=== PATIENT | female | born 1935 | race Caucasian/White ===

== ENCOUNTER 2018-06-03 05:30 | Inpatient (IN) ==
[2018-06-03] MEDS ORDERED: Sodium Chlor 0.9% Inj 80 ML, Bupivacaine Liposo PF 1.3% Inj 20 ML P-ARTICULR ONE ×2 (05:47)
[2018-06-03] MEDS ORDERED: Chlorhexidine Gluconate 2% 1 Pack (2 Cloths) TOPICAL ONE (05:49)
[2018-06-03] MEDS ORDERED: Metoprolol Tartrate 25 MG Tablet PO ONE (05:49)
[2018-06-03] MEDS ORDERED: Sodium Chlor 0.9% Inj 500 ML IV.SIG SCH (06:00)
[2018-06-03] MEDS ORDERED: TRANEXAMIC ACID IV.SIG SCH ×2 (06:00→09:00)
[2018-06-03] MEDS ORDERED: ceFAZolin 2 GM Premix Inj 2 GM/50 ML PIGGYBACK IV.SIG SCH (06:00)
[2018-06-03] MEDS ORDERED: Chlorhexidine 4% Topical 120 APPLIC/120 ML Bottle TOPICAL SCH (06:00)
[2018-06-03] MEDS ORDERED: SODIUM CHLOR 0.9% IV.SIG SCH ×2 (06:00→09:00)
[2018-06-03] MEDS ORDERED: Bupivacaine Liposomal PF 1.3% Inj 20 ML Vial ONE (06:12)
[2018-06-03] MEDS ORDERED: Lidocaine PF 1% Inj 5 ML Vial ONE (06:13)
[2018-06-03] MEDS ORDERED: Propofol Inj 500 MG/50 ML Vial ONE (06:17)
[2018-06-03] MEDS ORDERED: Famotidine PF Inj 20 MG/2 ML Vial ONE (06:17)
[2018-06-03 06:35] LABS: Baso # (Auto) 0.3 th/mm3 (0.0-0.2); Baso % (Auto) 2.4 % (0.0-2.0); Eos # (Auto) 0.6 th/mm3 (0.0-0.4); Eos % (Auto) 4.9 % (0.0-4.0); Hematocrit 37.1 % (35.0-46.0); Hemoglobin 12.3 gm/dL (11.6-15.3); Lymph # (Auto) 0.7 th/mm3 (1.0-4.8); Mean Corpuscular HGB Conc 33.1 % (32.0-36.0); Mean Corpuscular Hemoglobin 29.8 pg (27.0-34.0); Mean Corpuscular Volume 89.9 fL (80.0-100.0); Mean Platelet Volume 8.6 fL (7.0-11.0); Mono # (Auto) 1.2 th/mm3 (0.0-0.9); Mono % (Auto) 10.1 % (0.0-8.0); Neut # (Auto) 8.9 th/mm3 (1.8-7.7); Neut % (Auto) 76.6 % (16.0-70.0); Platelet Count 535 th/mm3 (150-450); Red Blood Count 4.13 mil/mm3 (4.00-5.30); White Blood Count 11.7 th/mm3 (4.0-11.0)
[2018-06-03] MEDS ORDERED: fentaNYL Citrate Inj 100 MCG/2 ML Ampul ONE (06:35)
[2018-06-03] MEDS ORDERED: fentaNYL Citrate Inj 250 MCG/5 ML Ampul ONE (06:35)
--- NOTE | 2018-06-03 06:54 | P.DCO ---
- Physical Therapy Physical Therapy: Gait training Knee: Total knee, Protocol: Left, Gait training, Full weight bearing Left Lower Extremity Weight Bearing: Weight bearing as tolerated Left Lower Extremity Range of Motion: Active ROM (Active, active assisted, passive range of motion. Range of motion goal is 0 degrees extension to 135 degrees of flexion.) - Nursing Nursing: Dressing changes (Do not remove Dermabond Prineo (the tape that is directly on the wound).Leave the Optifoam dressing in place for 7 days. After this, daily dressing changes will be done taking care to avoid injuring or removing the Dermabond Prineo.) Dressing changes: Other (Do not remove Dermabond Prineo (the tape that is directly on the wound).Leave the Optifoam dressing in place for 7 days. After this, daily dressing changes will be done taking care to avoid injuring or removing the Dermabond Prineo.) - Case Management Consult Case Management Consult-Home Health: Yes - Certification Need for Home Health services: I have seen patient Antonia Carrasco on 06/03/18. My clinical findings support the need for the requested home health care services because: Need for Home Health Services: Limited ability to care for self, High risk of falls Homebound Certification: I certify that my clinical findings support that this patient is homebound because: Homebound Certification: Post-op weakness, Unsteady gait/balance, Unsafe to leave home unassisted
[2018-06-03 07:18] LABS: Dimorphic RBC Present; Ovalocytes 1+
[2018-06-03] MEDS ORDERED: VITAMIN D3 VITAMIN K2 PO SCH (09:00)
[2018-06-03] MEDS ORDERED: Non-Formulary Drug (Omega 3-Dha-Epa-Fish Oil [Fish Oil] 1 CAP) PO SCH (09:00)
[2018-06-03] MEDS ORDERED: LENALIDOMIDE 5 MG PO SCH (09:00)
--- NOTE | 2018-06-03 09:20 | P.OP ---
- Preoperative Diagnosis (1) Primary osteoarthritis of left knee - Postoperative Diagnosis (1) Primary osteoarthritis of left knee Date of procedure: 06/03/18 Procedure: Left total knee arthroplasty using Joanna Triathlon prosthesis (cemented) Anesthesia: GETA, local (Exparel) Surgeon: Jose Manuel Lea MD Senior Data Quality Analyst: PRATEEK Segura Estimated blood loss (mL): 150 Tourniquet time (min): 0 Pathology: other (Bone lesion, left medial femoral condyle) Operation and Findings: Indications and Findings: This 82-year-old woman has had 5-1/2-year history of left knee pain secondary to osteoarthritis. Her symptoms include generalized swelling and pain, difficulty ascending and descending stairs, pain when sitting for any length of time and giving way occasionally. She has a very limited ambulation tolerance. She is only able to walk around the grocery store. Treatment has included analgesics, anti-inflammatory agents, activity modification, exercise, intra-articular corticosteroids and ambulatory aids. These are no longer giving her enough pain relief to remain functional. Radiographic findings including x-rays and MRI showed severe arthritis in the left knee with loss of articular cartilage to [id number] in the lateral compartment, except multiple osteophytes in all compartments and general demineralization. There was subchondral sclerosis in the lateral compartment. Operative findings: There is severe arthritis in the left knee particularly in the lateral compartment with loss of articular cartilage to exposed subchondral bone. There was articular cartilage disruption in the medial and lateral compartments. In the medial femoral condyle along the medial ridge there was a yellowish lesion measuring approximately 5 mm across, 5 mm deep and 20 mm in length. This was removed and sent to pathology. The bone quality was not sufficient for uncemented prosthesis. The prosthesis used was a Joanna Triathlon prosthesis. The femur was a size 4, cruciate retaining. The tibial baseplate was a size 4, Vitallium with a 9 mm, cruciate retaining, X3 polyethylene spacer. The patella was a size 32 mm asymmetric X3 polyethylene. The cement was Simplex.. After a regional anesthetic by adductor canal block was administered, the patient was brought to the clean-air operating suite. A spinal anesthetic was administered. The position was supine with a small bolster under the hip on the operative side. A pneumatic tourniquet was applied to the upper thigh. The lower extremity was prepped with alcohol, Hibiclens and ChloraPrep and draped in the usual manner with the knee draped free. An appropriate timeout procedure was carried out. An incision was made from about 3 fingerbreadths above the superior medial pole of patella down the tibial tubercle on the medial side. The incision was deepened through the subcutaneous tissue to the retinacular structures which were exposed medially and laterally. A medial retinacular incision was made from the superior middle pole of patella down the tibial tubercle and up into the quadriceps tendon splitting it longitudinally and the medial one third. The patella was reflected. The infrapatellar fat pad was debulked. The anterior cruciate ligament was excised. Medial and lateral meniscectomies were initiated. Fenestrations were made in the distal femur and proximal tibia for intramedullary referencing guides. The posterior surface of the patella was excised with the oscillating saw. A patellar protector was applied. The distal femoral cutting guide and jig were assembled for a 5, 8 mm cut. When this was in position, the cutting block was stabilized with pins. The jig was removed. The distal femoral cut was completed with the oscillating saw. The sizing guide was positioned in place along Whitesides line and the epicondylar axis and stabilized with pins. The femoral size was determined as noted above. The 4-in-1 cutting block was positioned in place. Anterior and posterior cuts were made followed by posterior and anterior chamfer cuts taking care to prevent injury to ligamentous structures. Osteophytes were trimmed from the distal femur. The lesion in the medial femoral condyle and trochlea area was debrided with a curette and sent to pathology. A bone plug was placed into the fenestration of the distal femur. The proximal tibia was exposed. The medial and lateral meniscectomies were completed. The proximal tibial cutting guide was positioned in place and stabilized with a pin for rotation. The depth of cut was verified with a stylus off the lateral side. The cutting block was stabilized with pins. The jig was removed. The depth of cut was verified and adjusted appropriately with the use of the spacer block. The proximal tibial cut was made with the oscillating saw taking care to prevent injury to neurovascular and ligamentous structures. Proximal tibial bone was removed. Local anesthetic was administered with Exparel in the posterior capsule. The tibial baseplate trial was positioned in place. After verifying the appropriate size, the base plate trial was positioned in place along with its spacer. The femoral component was impacted into place. The alignment was checked. The tibial baseplate was pinned in place on the tibia. Attention was directed to the patella. The patella drill guide was positioned in place for the appropriate sized patella. Patellar drilling was carried out. The trial patella was positioned in place. The knee was taken through a range of motion which was easily 0 extension to 150. The patella trial was removed. The femoral drill holes were made. The femoral trials were removed. The tibial spacer was removed. A bone plug was placed into the proximal tibia. The tibial punch was impacted through the proximal tibial punch guide. The cut ends of bone were cleaned with pulse lavage. Simplex cement was pressurized into the proximal aspect of the tibia after drying. The tibial baseplate was impacted into place and seated appropriately. Excess cement was trimmed. The spacer was inserted. The distal end of the femur was cleaned with pulse lavage. After drying, cement was applied to the distal end of the femur and the femoral component. The femoral component was then impacted into place and seated appropriately. Excess cement was trimmed. The posterior surface of the patella was cleaned with pulse lavage. Cement was injected into the posterior surface of the patella and the patella component. The patella component was seated with the patellar clamp and tightened appropriately. Excess cement cement was trimmed. The remainder of the Exparel was injected throughout the knee as a local anesthetic. Drains were brought out the superior lateral aspect of the suprapatellar pouch. The knee was taken through a range of motion which was comparable to the previous range of motion with excellent stability in flexion and extension and appropriate patellofemoral tracking. Wound closure commenced using #1 Vicryl interrupted [id number] sutures and a continuous barbed suture for the capsular and fascial structures, 2-0 Vicryl interrupted simple sutures with buried knots for the subcutaneous tissues and 4-0 Monocryl, continuous subcuticular closure for the skin. The wound was dressed with Dermabond Prineo followed by Optifoam silver impregnated dressing. Sterile soft roll with a cooling pad and Baljeet bandage from the base of the toes to mid thigh were then applied. The patient was transferred from the operating room to the recovery room in satisfactory condition having tolerated procedure well. Counts were correct. Specimens: None. Estimated blood loss: 150 mL
[2018-06-03] MEDS ORDERED: Tranexamic Acid Inj 0 MG in Sodium Chlor 0.9% Inj 100 ML IV.SIG ONE (09:25)
[2018-06-03] MEDS ORDERED: Aluminum/Magnesium/Simethacone Susp 30 ML UDC PO PRN (09:25)
[2018-06-03] MEDS ORDERED: Morphine Inj 4 MG/ML Vial IV.PUSH PRN (09:25)
[2018-06-03] MEDS ORDERED: Post-op Orders (for Pharmacy) OTHER STA (09:25)
[2018-06-03] MEDS ORDERED: Bisacodyl 10 MG Supp RECTAL PRN (09:25)
[2018-06-03] MEDS ORDERED: Acetaminophen 325 MG Tablet PO PRN (09:25)
[2018-06-03] MEDS ORDERED: *morphine SULFATE 10 MG/ML PERIprocedure ONLY ONE (10:18)
[2018-06-03] MEDS: Aspirin 325 MG Tablet PO SCH (10:23)
[2018-06-03] MEDS: Celecoxib 200 MG Capsule PO SCH (10:35)
--- NOTE | 2018-06-03 10:47 | XR ---
EXAM DATE: 06/03/2018 10:45 AM EST AGE/SEX: 82 years / Female INDICATIONS: Post left knee surgery. CLINICAL DATA: This is the patient's initial encounter. Patient reports that signs and symptoms have been present for 1 day and indicates a pain score of 7/10. MEDICAL/SURGICAL HISTORY: None. None. COMPARISON: No prior exams available for comparison. FINDINGS: Left knee arthroplasty in place. Arthroplasty components are in anatomic alignment. No significant ac redding fracture. Immediate postsurgical soft tissue features. CONCLUSION: 1. Left knee arthroplasty in anatomic alignment without acute fracture. Electronically signed by: Quentin Mendez MD Board Certified Radiologist 06/03/2018 10:46 AM [facility] T
[2018-06-03] MEDS: Ketorolac Inj 30 MG/ML (IVP) Vial IV.PUSH SCH ×3 (11:38→20:33)
--- NOTE | 2018-06-03 15:22 | P.CONIM ---
History of Present Illness Service: Hospitalist Consult date: 06/03/18 Requesting Physician: Jose Manuel Lea Reason for Consult: Assist with ongoing medical management Primary Care Provider: Sekou Mon MD Chief Complaint: Left knee pain History of Present Illness: This is a 82-year-old female with a past medical history significant for breast cancer status post bilateral mastectomies and reconstruction, Sjoren's, myelofibrosis followed by Dr. Thorpe, dyslipidemia, hypertension and osteoarthritis of the left knee who tried and failed numerous attempts at conservative therapy and underwent elective left total knee replacement performed by Dr. Lea earlier today. Hospitalist services have been consulted to assist with ongoing medical management. Patient seen and examined. Patient reports her postop pain is well controlled at this time. She does not voice any acute medical complaints or concerns. She denies any fever or chills. She denies any chest pain or shortness of breath. She denies any nausea, vomiting or abdominal pain. She does state that she has intermittent chronic diarrhea secondary to Revlimid use but has not had any diarrhea in the past few days. She denies any urinary difficulties, hematuria or dysuria. Patient had estimated intraoperative blood loss of 150 mL's. BP is currently 152/61. She is afebrile. O2 sats are 96% on room air. Review of Systems Review of Systems: all other systems reviewed are negative [facility] Medical History Medical History Maintenance chemotherapy (Acute) TIA (transient ischemic attack) (Acute) Arthritis (Acute) GERD (gastroesophageal reflux disease) (Acute) History of anesthesia reaction (Acute) History of breast cancer (Acute) History of hysterectomy (Acute) Hypertension (Acute) Myelofibrosis (Acute) Wears glasses (Acute) Surgical History Surgical History H/O bilateral breast implants (Acute) H/O bilateral mastectomy (Acute) History of ankle surgery (Acute) Hx of tonsillectomy (Acute) Status post cataract extraction of both eyes with insertion of intraocular lens (Acute) Family History Family History Aunt Breast cancer Social History Social History Substance History: No History of Abuse Second Hand Smoke Exposure: No Smoking Status: Never smoker How Often Do You Have a Drink Containing Alcohol: 2 to 4 times a month Recent Travel in [place] within the Last 8 Weeks: No Recent Out of Country Travel within the Last 8 Weeks: No Immunization History Tetanus Immunization: <5 Years Hx Influenza Vaccine This Season: Yes Medications and Allergies Allergies Allergy/AdvReac Type Severity Reaction Status Date / Time codeine AdvReac Severe NAUSEA Verified 06/03/18 06:02 lactose AdvReac Severe INTOLERANT Verified 06/03/18 06:02 Home Medications Medication Instructions Recorded Confirmed Type aspirin 325 mg PO DAILY 05/26/18 06/03/18 History celecoxib [Celebrex] 200 mg PO DAILY 05/26/18 06/03/18 History estradiol [Estrace] 1 g VAGINAL 3XW 05/26/18 06/03/18 History hydroxychloroquine 200 mg PO MOWEFR 05/26/18 06/03/18 History lenalidomide [Revlimid] 5 mg PO DAILY 05/26/18 06/03/18 History losartan 100 mg PO HS 05/26/18 06/03/18 History mecobalamin (vitamin B12) 1,000 mcg SUBLINGUAL DAILY 05/26/18 06/03/18 History nebivolol [Bystolic] 5 mg PO HS 05/26/18 06/03/18 History omega 4-fqg-ijq-fish oil [Fish Oil] 1 cap PO DAILY 05/26/18 06/03/18 History vitamin D3-vitamin K2 1,000 unit PO BID 05/26/18 06/03/18 History Active Medications: Active Medications Acetaminophen (Tylenol) 650 mg PO Q6H PRN PRN Reason: Pain Less Than 3 On Scale Hydrocodone Bitart/Acetaminophen (Mayflower 7.5/325) 1 tab PO Q4H PRN PRN Reason: PAIN SCALE 4 TO 6 MODERATE Hydrocodone Bitart/Acetaminophen (Mayflower 7.5/325) 2 tab PO Q6H PRN PRN Reason: PAIN SCALE 7 TO 10 SEVERE Al Hydrox/Mg Hydrox/Simethicone (Mag-Al Plus Susp Liq) 30 ml PO Q6H PRN PRN Reason: INDIGESTION Al Hydroxide/Mg Hydroxide (Milk Of Magnesia Liq) 30 ml PO BID PRN PRN Reason: Mild Constipation Aspirin (Aspirin) 325 mg PO DAILY KATHARINA Last Admin: 06/03/18 10:23 Dose: 325 mg Bisacodyl (Dulcolax Supp) 10 mg RECTAL DAILY PRN PRN Reason: SEVERE CONSITIPATION Celecoxib (Celebrex) 200 mg PO DAILY COUNTS INCLUDE 234 BEDS AT THE [facility] Last Admin: 06/03/18 10:35 Dose: 200 mg Chlorhexidine Gluconate (Hibiclens 4% Topical) 1 applicatio TOPICAL ONCE COUNTS INCLUDE 234 BEDS AT THE [facility] Stop: 06/07/18 05:59 Last Admin: 06/03/18 06:28 Dose: 1 applicatio Cyanocobalamin (Vitamin B12) 1,000 mcg PO DAILY COUNTS INCLUDE 234 BEDS AT THE [facility] Last Admin: 06/03/18 10:36 Dose: 1,000 mcg Diphenhydramine HCl (Benadryl) 25 mg PO Q6H PRN PRN Reason: ITCHING Estradiol (Estrace 0.01% Vag Cream) 1 appful VAGINAL SuWeFr COUNTS INCLUDE 234 BEDS AT THE [facility] Hydroxychloroquine Sulfate (Plaquenil) 200 mg PO MOWEFR COUNTS INCLUDE 234 BEDS AT THE [facility] Cefazolin Sodium/Dextrose (Ancef 2 Gm Premix Inj) 2 gm in 50 mls @ 100 mls/hr IV.SIG ADOBE CQ DEVELOPER COUNTS INCLUDE 234 BEDS AT THE [facility] Stop: 06/07/18 05:59 Last Infusion: 06/03/18 07:25 Dose: Infused Lactated Ringer's (Lr 1000 Ml Inj) 1,000 mls @ 30 mls/hr IV.SIG .Q24H COUNTS INCLUDE 234 BEDS AT THE [facility] Stop: 06/04/18 05:59 Last Infusion: 06/03/18 07:41 Dose: Infused Sodium Chloride (Ns Inj) 500 mls @ 30 mls/hr IV.SIG .Q10H COUNTS INCLUDE 234 BEDS AT THE [facility] Last Admin: 06/03/18 06:28 Dose: Not Given Lactated Ringer's (Lr 1000 Ml Inj) 1,000 mls @ 80 mls/hr IV.CONT .[id number] COUNTS INCLUDE 234 BEDS AT THE [facility] Last Admin: 06/03/18 10:00 Dose: 80 mls/hr Cefazolin Sodium 1 gm/ Sodium (Chloride) 100 mls @ 200 mls/hr IV.SIG Q6H COUNTS INCLUDE 234 BEDS AT THE [facility] Stop: 06/04/18 07:29 Ketorolac Tromethamine (Toradol Inj) 15 mg IV.PUSH Q6H COUNTS INCLUDE 234 BEDS AT THE [facility] Stop: 06/05/18 03:31 Last Admin: 06/03/18 11:38 Dose: Not Given Lactulose (Lactulose Liq) 30 ml PO DAILY PRN PRN Reason: SEVERE CONSITIPATION Losartan Potassium (Cozaar) 100 mg PO HS COUNTS INCLUDE 234 BEDS AT THE [facility] Miscellaneous Information (Misc Nursing Information) 1 each OTHER UNSCH PRN PRN Reason: SEE LABEL COMMENTS Stop: 06/04/18 09:36 Morphine Sulfate (Morphine Inj) 2 mg IV.PUSH Q3H PRN PRN Reason: BREAKTHROUGH PAIN Nebivolol (Bystolic) 5 mg PO HS COUNTS INCLUDE 234 BEDS AT THE [facility] Ondansetron HCl (Zofran Odt) 4 mg PO Q6H PRN PRN Reason: NAUSEA OR VOMITING Lenalidomide ( Revlimid) 5 Mg Po Daily 0 each PO DAILY COUNTS INCLUDE 234 BEDS AT THE [facility] Senna/Docusate Sodium (Thea-Colace) 1 tab PO BID COUNTS INCLUDE 234 BEDS AT THE [facility] Sennosides (Senokot) 17.2 mg PO BID PRN PRN Reason: Moderate Constipation Sodium Chloride (Ns Flush) 2 ml IV.FLUSH BID KATHARINA Sodium Chloride (Ns Flush) 2 ml IV.FLUSH PRN PRN PRN Reason: FLUSH AFTER USING IV ACCESS Physical Exam Vital signs: Vital Signs 06/03/18 06:11 06/03/18 06:40 06/03/18 09:37 Temperature 97.8 F 97.5 F L Pulse Rate 64 59 L Respiratory Rate 18 12 Blood Pressure 215/97 H 173/81 H Pulse Oximetry 100 100 100 06/03/18 09:45 06/03/18 10:00 06/03/18 10:15 Temperature Pulse Rate 54 L 50 L 59 L Respiratory Rate 16 16 16 Blood Pressure 150/70 H 174/77 H 175/77 H Pulse Oximetry 100 100 98 06/03/18 10:30 06/03/18 11:00 06/03/18 12:00 Temperature 98.2 F 98.2 F 98.0 F Pulse Rate 50 L 51 L 52 L Respiratory Rate 12 16 19 Blood Pressure 175/77 H 173/75 H 152/61 H Pulse Oximetry 99 100 96 Intake & Output 06/02/18 06/03/18 06/03/18 18:59 06:59 18:59 Intake Total 215. / 215. Output Total 150 / 150 Balance Weight 52.2 kg 52.2 kg Intake: IV 1155.22 / 1155.22 LR 1000 mL Inj 1,000 ML @ 30 1000 / 1000 mls/hr IV.SIG .Q24H KATHARINA Rx#: [id number] Cyklokapron Inj 522 MG In NS 105.22 / 105.22 Inj 100 ML @ 200 mls/hr IV.SIG ONCE KATHARINA Rx#:[id number] Ancef 2 GM Premix Inj 2 gm In 50 / 50 50 ml @ 100 mls/hr IV.SIG ADOBE CQ DEVELOPER KATHARINA Rx#:[id number] Anesthesia Amount 1000 / 1000 Output: Estimated Blood Loss 150 / 150 Other: Weight On Admission 52.2 kg Narrative: GENERAL: WDWN female patient, appears much younger than stated age. In no acute distress. Awake and alert. at the bedside. SKIN: Warm and dry. HEAD: Atraumatic. Normocephalic. EYES: Pupils equal and round. No scleral icterus. No injection or drainage. ENT: No nasal bleeding or discharge. Mucous membranes pink and moist. NECK: Trachea midline. CARDIOVASCULAR: Regular rate and rhythm. No murmur auscultated. RESPIRATORY: No accessory muscle use. Clear to auscultation. Breath sounds equal bilaterally. GASTROINTESTINAL: Abdomen soft, non-tender, nondistended. +Hypoactive BS. MUSCULOSKELETAL: s/p left total knee replacement, postop dressings in place, C/D /I, +cryotherapy. NV intact distal LLE with some mild subjective decreased sensation left lower extremity status post block. NEUROLOGICAL: Awake and alert. No obvious cranial nerve deficits. Able to move all extremities spontaneously. Normal speech. PSYCHIATRIC: Appropriate mood and affect; insight and judgment normal. Results Labs CBC & Chem 7: 06/03/18 06:25 Imaging Impressions Knee X-Ray 06/03/18 06:51 CONCLUSION: 1. Left knee arthroplasty in anatomic alignment without acute fracture. ABG Impressions Knee X-Ray 06/03/18 06:51 CONCLUSION: 1. Left knee arthroplasty in anatomic alignment without acute fracture. Assessment and Plan (1) Status post total left knee replacement using cement: Code(s): Z96.652 - Presence of left artificial knee joint Status: Acute Plan 82-year-old female with osteoarthritis left knee admitted status post elective left total knee replacement performed by Dr. Lea. Hospitalist service is consulted to assist with ongoing medical management. Osteoarthritis left knee failed attempts at conservative therapy Status post elective left total knee replacement performed by Dr. 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 Thorpe as outpatient -continue on home med Revlimid and Plaquenil -patient at increased risk of bleeding and thrombosis. Will likely need to escalate postoperative anticoagulation if no significant postop blood loss. Per Dr. Thorpe, consider Heparin x 1 week following her surgery Inflammatory arthritis Sjogren's -continue on home dose Plaquenil DVT prophylaxis -per Ortho Thank you very kindly for this consultation. We will continue to follow patient along with you. Discussed Condition With: patient, nursing staff, Dr. Ayala Discharge Planning: per primary team
[2018-06-03] MEDS ORDERED: hydrALAZINE 10 MG Tablet PO PRN (17:07)
[2018-06-03] MEDS: ceFAZolin Inj 1 GM in Sodium Chlor 0.9% Inj 100 ML IV.SIG SCH (18:00)
[2018-06-03] MEDS: Senna/Docusate Sodium 8.6/50 MG Tablet PO SCH (20:33)
[2018-06-04] MEDS: ceFAZolin Inj 1 GM in Sodium Chlor 0.9% Inj 100 ML IV.SIG SCH ×2 (01:16→06:30)
[2018-06-04] MEDS: Ketorolac Inj 30 MG/ML (IVP) Vial IV.PUSH SCH ×3 (03:31→14:55)
[2018-06-04 06:20] LABS: Hematocrit 32.7 % (35.0-46.0); Hemoglobin 10.7 gm/dL (11.6-15.3)
[2018-06-04 06:45] LABS: Calcium 8.5 mg/dL (8.5-10.1); Carbon Dioxide 28.3 meq/L (21.0-32.0); Potassium 3.7 meq/L (3.5-5.1)
[2018-06-04] MEDS ORDERED: Neostigmine Inj 5 MG/5 ML Syringe IV.PUSH ONE (06:53)
[2018-06-04] MEDS ORDERED: Glycopyrrolate Inj 1 MG/5 ML Syringe IV.PUSH ONE (06:53)
[2018-06-04] MEDS ORDERED: Lidocaine PF 1% Inj 5 ML Syringe OTHER ONE (06:53)
--- NOTE | 2018-06-04 07:26 | P.PNOP ---
Subjective Interval history: Postop day #1 She is doing well. She has virtually no complaints related to the knee. Physical therapy reports that the ambulation distance was 100 feet. The range of motion was 0 degrees of extension to 87 degrees of flexion. Physical Exam Vital signs: Vital Signs 06/03/18 09:37 06/03/18 09:45 06/03/18 10:00 Temperature 97.5 F L Pulse Rate 59 L 54 L 50 L Respiratory Rate 12 16 16 Blood Pressure 173/81 H 150/70 H 174/77 H Pulse Oximetry 100 100 100 06/03/18 10:15 06/03/18 10:30 06/03/18 11:00 Temperature 98.2 F 98.2 F Pulse Rate 59 L 50 L 51 L Respiratory Rate 16 12 16 Blood Pressure 175/77 H 175/77 H 173/75 H Pulse Oximetry 98 99 100 06/03/18 12:00 06/03/18 16:00 06/03/18 19:35 Temperature 98.0 F 97.6 F 96.8 F L Pulse Rate 52 L 54 L 57 L Respiratory Rate 19 14 18 Blood Pressure 152/61 H 164/74 H 169/76 H Pulse Oximetry 96 98 97 06/03/18 23:40 06/04/18 04:30 Temperature 97.3 F L 97.1 F L Pulse Rate 62 62 Respiratory Rate 18 17 Blood Pressure 149/70 H 168/70 H Pulse Oximetry 96 93 L Intake & Output 06/03/18 06/04/18 06/04/18 18:59 06:59 18:59 Intake Total 2255.22 / 2255.22 760 / 760 Output Total 150 / 150 80 / 80 Balance 2105.22 / 2105.22 680 / 680 Weight 52.2 kg 52.2 kg Intake: IV 1255.22 / 1255.22 100 / 100 LR 1000 mL Inj 1,000 ML @ 30 1000 / 1000 mls/hr IV.SIG .Q24H KATHARINA Rx#: [id number] Cyklokapron Inj 522 MG In NS 105.22 / 105.22 Inj 100 ML @ 200 mls/hr IV.SIG ONCE KATHARINA Rx#:[id number] Ancef 2 GM Premix Inj 2 gm In 50 / 50 50 ml @ 100 mls/hr IV.SIG COMMUNICATIONS ELECTRICIAN SUPERVISOR KATHARINA Rx#:[id number] Ancef Inj 1 GM In NS Inj 100 ML 100 / 100 100 / 100 @ 200 mls/hr IV.SIG Q6H KATHARINA Rx #:[id number] Oral 660 / 660 Anesthesia Amount 1000 / 1000 Output: Estimated Blood Loss 150 / 150 Wound Drainage 80 / 80 # 1 Left Knee 80 / 80 Other: # Voids 1 1 Date of Last Bowel Movement 06/02/18 06/02/18 # Bowel Movements 0 Narrative: She is resting comfortably, supine in bed. The dressing is dry and intact. The neurovascular status is intact. She is bending the knee and moving it without much difficulty. Results - Labs CBC & Chem 7: 06/04/18 04:47 06/04/18 04:47 Laboratory Results - last 24 hr 06/04/18 06/04/18 04:47 04:47 Hgb 10.7 L Hct 32.7 L Sodium 139 Potassium 3.7 Chloride 103 Carbon Dioxide 28.3 Anion Gap 8 BUN 13 Creatinine 0.94 Estimated GFR 57 L Random Glucose 86 Calcium 8.5 - Imaging Impressions Knee X-Ray 06/03/18 06:51 CONCLUSION: 1. Left knee arthroplasty in anatomic alignment without acute fracture. - Procedures Right total knee arthroplasty using [place] Triathlon prosthesis (cemented) on . Assessment and Plan - Ortho Post Op Day # 1 - Problem List (1) Status post total left knee replacement using cement Code(s): Z96.652 - Presence of left artificial knee joint Status: Acute Onset Date: 06/03/18 Plan: Continue postop care and PT. I have discussed the findings at the time of surgery with her. I have explained the procedure to her. - Assessment and Plan Condition: Good. Orthopedically stable. DVT prophylaxis: TEDs, aspirin, sequentials. Discharge plans: Home with home health care. An appointment was scheduled through the office. Prescriptions: Pinon 7.5/325; Patient is having significant pain caused by a total knee arthroplasty which will last more than 3 days. Trial of Tylenol has not helped. I believe that it is medically necessary to treat patients pain because it is affecting patients ability to participate in postoperative rehabilitation and perform activities of daily living in a comfortable and efficient manner. I have checked the [facility] database prior to completing the prescription.
--- NOTE | 2018-06-04 07:55 | P.DS ---
Date of admission: 06/03/18 05:30 Primary care physician: Sekou Mon MD Attending physician on discharge: Jose Manuel Lea Anticipated date of discharge: 06/04/18 Brief History from admission: This 82-year-old woman has had long-standing arthritis in her left knee, nonresponsive to conservative measures including anti-inflammatory agents, analgesics, injections, ambulatory aids, physical therapy and the like. This interferes with her activities of daily living. She has a limited ambulation tolerance. Physical findings showed genu valgum with crepitation and laxity in the lateral compartment. There were palpable osteophytes. Radiographic findings showed severe arthritis in the knee with loss of articular cartilage to [id number] in the lateral compartment, degenerative changes in the medial, lateral and patellofemoral compartment including osteophytes and subchondral sclerosis laterally. DS: Diagnosis - Discharge Diagnosis (1) Status post total left knee replacement using cement Status: Acute Diagnosis: Principal (2) Primary osteoarthritis of left knee Status: Chronic DS: Medications - Discharge Medications Prescriptions: hydrocodone-acetaminophen 1 tab PO Q4H PRN 7 Days #42 tab PRN Reason: Pain DS: Summary Hospital Course: The patient was admitted as noted above. The above noted operative procedure was carried out that day. Preoperatively prophylactic antibiotics were administered Ancef according to protocol. These were continued postoperatively. The patient also received tranexamic acid to help with hemostasis according to protocol. In the postanesthesia care unit mechanical methods of DVT prophylaxis in the form of ASHLEY stockings and sequentials were initiated. Physical therapy was initiated on the day of surgery. On postoperative day #1 physical therapy continued. DVT prophylaxis with resumption of aspirin 325 mg was initiated at this time. The patient continued physical therapy throughout the hospitalization. The distance walked and range of motion improved throughout the hospitalization. The patient was discharged on postoperative day 1 with the disposition being to home with home health care. An appointment for follow-up was made prior to admission. - Time Spent with Patient Total time spent providing and/or coordinating discharge services: Less than 30 minutes - Quality: VTE Deep Vein Thrombosis/Pulmonary Embolism Present on Admission: No Exam Vital signs: Vital Signs 06/03/18 09:37 06/03/18 09:45 06/03/18 10:00 Temperature 97.5 F L Pulse Rate 59 L 54 L 50 L Respiratory Rate 12 16 16 Blood Pressure 173/81 H 150/70 H 174/77 H Pulse Oximetry 100 100 100 06/03/18 10:15 06/03/18 10:30 06/03/18 11:00 Temperature 98.2 F 98.2 F Pulse Rate 59 L 50 L 51 L Respiratory Rate 16 12 16 Blood Pressure 175/77 H 175/77 H 173/75 H Pulse Oximetry 98 99 100 06/03/18 12:00 06/03/18 16:00 06/03/18 19:35 Temperature 98.0 F 97.6 F 96.8 F L Pulse Rate 52 L 54 L 57 L Respiratory Rate 19 14 18 Blood Pressure 152/61 H 164/74 H 169/76 H Pulse Oximetry 96 98 97 06/03/18 23:40 06/04/18 04:30 Temperature 97.3 F L 97.1 F L Pulse Rate 62 62 Respiratory Rate 18 17 Blood Pressure 149/70 H 168/70 H Pulse Oximetry 96 93 L Intake & Output 06/03/18 06/04/18 06/04/18 18:59 06:59 18:59 Intake Total 2255.22 / 2255.22 760 / 760 Output Total 150 / 150 80 / 80 Balance 2105.22 / 2105.22 680 / 680 Weight 52.2 kg 52.2 kg Intake: IV 1255.22 / 1255.22 100 / 100 LR 1000 mL Inj 1,000 ML @ 30 1000 / 1000 mls/hr IV.SIG .Q24H KATHARINA Rx#: [id number] Cyklokapron Inj 522 MG In NS 105.22 / 105.22 Inj 100 ML @ 200 mls/hr IV.SIG ONCE KATHARINA Rx#:[id number] Ancef 2 GM Premix Inj 2 gm In 50 / 50 50 ml @ 100 mls/hr IV.SIG METAL CLEANER KATHARINA Rx#:[id number] Ancef Inj 1 GM In NS Inj 100 ML 100 / 100 100 / 100 @ 200 mls/hr IV.SIG Q6H KATHARINA Rx #:[id number] Oral 660 / 660 Anesthesia Amount 1000 / 1000 Output: Estimated Blood Loss 150 / 150 Wound Drainage 80 / 80 # 1 Left Knee 80 / 80 Other: # Voids 1 1 Date of Last Bowel Movement 06/02/18 06/02/18 # Bowel Movements 0 Narrative: She is resting comfortably, supine in bed. The dressing is dry and intact. The neurovascular status is intact. She is bending the knee and moving it without much difficulty. Results Procedures completed during hospitalization: Right total knee arthroplasty using [place] Triathlon prosthesis (cemented) on . Pending studies at discharge: Pending at discharge 06/03/18 12:33 Surgical [PTH] Routine Labs on day of discharge: Labs from last 24 hours 06/04/18 06/04/18 04:47 04:47 Hgb 10.7 L Hct 32.7 L Sodium 139 Potassium 3.7 Chloride 103 Carbon Dioxide 28.3 Anion Gap 8 BUN 13 Creatinine 0.94 Estimated GFR 57 L Random Glucose 86 Calcium 8.5 - Impressions ITS Impressions Knee X-Ray 06/03/18 06:51 CONCLUSION: 1. Left knee arthroplasty in anatomic alignment without acute fracture. Discharge Plan - Discharge Disposition Patient Disposition: W/Home Health Service - Discharge Condition Condition: Stable - Discharge Order Discharge Orders: Discharge Order (Routine); Ordered 06/04/18 Ordered By: Jose Manuel Lea - Discharge Details Anticipated Discharge Date: 06/04/18 - Physicians Team Primary Care Provider: Sekou Mon Attending Provider: Jose Manuel Lea Other Providers: Shelby Thorpe MD ; Adele Ayala MD ; [facility] - Rxs /Orders / Referrals /Forms Prescriptions: New hydrocodone-acetaminophen 7.5-325 mg Tablet 1 tab PO Q4H PRN (Reason: Pain) 7 Days Qty: 42 RF: 0 Continue aspirin 325 mg Tablet 325 mg PO DAILY celecoxib [Celebrex] 200 mg Capsule 200 mg PO DAILY estradiol [Estrace] 0.01 % (0.1 mg/gram) Cream 1 g VAGINAL 3XW hydroxychloroquine 200 mg Tablet 200 mg PO MOWEFR lenalidomide [Revlimid] 5 mg Capsule 5 mg PO DAILY losartan 100 mg Tablet 100 mg PO HS mecobalamin (vitamin B12) 1,000 mcg Tablet,Disintegrating 1,000 mcg SUBLINGUAL DAILY nebivolol [Bystolic] 5 mg Tablet 5 mg PO HS omega 6-cuq-dwg-fish oil [Fish Oil] 1,000 mg (120 mg-180 mg) Capsule 1 cap PO DAILY vitamin D3-vitamin K2 1000-90 unit-mcg Tablet,Disintegrating 1,000 unit PO BID Referrals: Jose Manuel Lea MD [Physician] - See Instructions Sekou Mon MD [Primary Care Provider] - See Instructions - Discharge Instructions Patient Printed Instructions: Knee Replacement (DC)
[2018-06-04] MEDS ORDERED: Hydroxychloroquine 200 MG Tablet PO SCH (08:00)
[2018-06-04] MEDS: Aspirin 325 MG Tablet PO SCH (08:41)
[2018-06-04] MEDS: Senna/Docusate Sodium 8.6/50 MG Tablet PO SCH (08:42)
[2018-06-04] MEDS: Celecoxib 200 MG Capsule PO SCH (08:42)
--- NOTE | 2018-06-04 10:48 | P.PNIM ---
Subjective Interval history: Follow-up on patient status post elective left total knee replacement. Patient seen and examined. Patient witnessed ambulating well in the unit with the assistance of a walker with therapy. Patient states that she had some heartburn this morning that has since resolved. She would like to try taking Tums. She is concerned about possibility of developing a blood clot and was asking what her platelet count was today. She says her blood pressure has been elevated secondary to pain. She denies any fever or chills. She denies any chest pain or shortness of breath. She denies any nausea, vomiting or abdominal pain. She denies any urinary difficulties. Physical Exam Vital signs: Vital Signs 06/03/18 11:00 06/03/18 12:00 06/03/18 16:00 Temperature 98.2 F 98.0 F 97.6 F Pulse Rate 51 L 52 L 54 L Respiratory Rate 16 19 14 Blood Pressure 173/75 H 152/61 H 164/74 H Pulse Oximetry 100 96 98 06/03/18 19:35 06/03/18 23:40 06/04/18 04:30 Temperature 96.8 F L 97.3 F L 97.1 F L Pulse Rate 57 L 62 62 Respiratory Rate 18 18 17 Blood Pressure 169/76 H 149/70 H 168/70 H Pulse Oximetry 97 96 93 L Intake & Output 06/03/18 06/04/18 06/04/18 18:59 06:59 18:59 Intake Total 2255.22 / 2255.22 760 / 760 Output Total 150 / 150 80 / 80 Balance 2105.22 / 2105.22 680 / 680 Weight 52.2 kg 52.2 kg Intake: IV 1255.22 / 1255.22 100 / 100 LR 1000 mL Inj 1,000 ML @ 30 1000 / 1000 mls/hr IV.SIG .Q24H KATHARINA Rx#: [id number] Cyklokapron Inj 522 MG In NS 105.22 / 105.22 Inj 100 ML @ 200 mls/hr IV.SIG ONCE KATHARINA Rx#:[id number] Ancef 2 GM Premix Inj 2 gm In 50 / 50 50 ml @ 100 mls/hr IV.SIG ALUM OPERATOR KATHARINA Rx#:[id number] Ancef Inj 1 GM In NS Inj 100 ML 100 / 100 100 / 100 @ 200 mls/hr IV.SIG Q6H KATHRAINA Rx #:[id number] Oral 660 / 660 Anesthesia Amount 1000 / 1000 Output: Estimated Blood Loss 150 / 150 Wound Drainage 80 / 80 # 1 Left Knee 80 / 80 Other: # Voids 1 1 Date of Last Bowel Movement 06/02/18 06/02/18 06/02/18 # Bowel Movements 0 Narrative: GENERAL: WDWN female patient, appears much younger than stated age, INAD. Awake and alert. Ambulating on unit with therapy. SKIN: Warm and dry. HEENT: Atraumatic. Pupils equal and round. No scleral icterus. No nasal discharge. Mucous membranes pink and moist. NECK: Trachea midline. CARDIOVASCULAR: Regular rate and rhythm. No murmur auscultated. RESPIRATORY: No accessory muscle use. Clear to auscultation. Breath sounds equal bilaterally. GASTROINTESTINAL: Abdomen soft, non-tender, nondistended. +BS. MUSCULOSKELETAL: s/p left total knee replacement, postop dressings in place, C/D /I. +Hemovac. NV intact LLE distally. NEUROLOGICAL: Awake and alert. No obvious cranial nerve deficits. Able to move all extremities spontaneously. Normal speech. PSYCHIATRIC: Appropriate mood and affect; insight and judgment normal. Results Labs CBC & Chem 7: 06/04/18 04:47 06/04/18 04:47 Imaging Imaging: Impressions Knee X-Ray 06/03/18 06:51 CONCLUSION: 1. Left knee arthroplasty in anatomic alignment without acute fracture. Procedures Procedures: Right total knee arthroplasty using [place] Triathlon prosthesis ( cemented) on 06/03/2018. Assessment and Plan (1) Status post total left knee replacement using cement: Code(s): Z96.652 - Presence of left artificial knee joint Status: Acute Onset Date: 06/03/18 (2) Primary osteoarthritis of left knee: Code(s): M17.12 - Unilateral primary osteoarthritis, left knee Status: Chronic Plan 82-year-old female with osteoarthritis left knee admitted status post elective left total knee replacement performed by Dr. Lea. Hospitalist service is consulted to assist with ongoing medical management. Osteoarthritis left knee failed attempts at conservative therapy Status post elective left total knee replacement performed by Dr. 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 Thorpe as outpatient -continue on home med Revlimid and Plaquenil -patient at increased risk of bleeding and thrombosis. Per Dr. Thorpe, consider Heparin x 1 week following her surgery. Cleared for Lovenox per Dr. Lea. Will give Lovenox teaching and RX x 7 days at discharge. Pateint to keep close follow up with Dr. Thorpe. Patient instructed to discontinue if any bleeding develops. Inflammatory arthritis Sjogren's -continue on home dose Plaquenil Heartburn, intermittent, chronic ppr -Tums prn -monitor DVT prophylaxis -per Ortho Discussed Condition With: patient, nursing staff, Dr. Ayala Discharge Planning: per primary team Attending Attestation The exam, history, and the medical decision-making described in the above note were completed with the assistance of the mid-level provider. I reviewed and agree with the findings presented. I attest that I had a [id number] encounter with the patient on the same day, and personally performed and documented my assessment and findings in the medical record. Patient reports she is feeling ok today. Pain is controlled On exam: Normal S1 S2, no significant murmurs. No chest pain. Left knee postop dressing is intact. A/P: Patient is doing well postop Left knee arthroplasty. Will plan for anticoagulation with Lovenox as recommended by her Housekeeping Cleaner. Will discuss with Ortho. Progress Note: Quality VTE Deep Vein Thrombosis/Pulmonary Embolism Present on Admission: No
[2018-06-04 11:37] VITALS: BP 174/79; PULSE 65; RESP 18; TEMP 98.8; O2SAT 96
[2018-06-04] MEDS ORDERED: Enoxaparin Inj 40 MG/0.4 ML Syringe SQ SCH (14:45)
== END 2018-06-04 15:48 | disposition home health service (06) | DRG 470 ==
LOC: HSDI 05:30 → N06 11:30
PROVIDERS: ADMIT Orthopaedic Surgery; ATTEND Orthopaedic Surgery
CPT/HCPCS: 73560; 80048; 85014; 85018; 85025; 86850; 86900; 86901; 88305; 88311; 94150; 97110; 97116; 97150; 97162; 97166; C1776; C9290; J0131; J0690; J1100; J1580; J1650; J1885; J2250; J2270; J2405; J2704; J2710; J2765; J3010; J7120